=== PATIENT | female | born 1985 | race Caucasian/White ===

== ENCOUNTER 2021-04-30 16:07 | Inpatient (IN) ==
[2021-04-30 17:05] LABS: Urine Appearance Clear; Urine Bilirubin Negative (Negative); Urine Blood Negative (Negative); Urine Color Colorless; Urine Glucose 1+(50 mg/dL) (Negative); Urine Ketones Negative (Negative); Urine Nitrite Negative (Negative); Urine Protein Negative (Negative); Urine Specific Gravity 1.003 (1.002-1.030); Urine Urobilinogen Negative (Negative)
[2021-04-30 19:52] LABS: Urine Benzodiazepine Screen None Detected (None Detect); Urine Cannabinoids Screen None Detected (None Detect); Urine Opiates Screen None Detected (None Detect)
[2021-05-01] MEDS ORDERED: Lactated Ringers 1000 ml BAG 1,000 ML IV ONE (01:26)
[2021-05-01 01:59] LABS: ABS Basophils 0.1 10^3/ul (0-0.2); ABS Eosinophils 0.1 10^3/ul (0-0.6); ABS Monocytes 1.2 10^3/ul (0-0.8); ABS Neutrophils 12.7 10^3/ul (1.5-7.7); Eosinophil % 0.4 %; Hematocrit 38 % (35-47); Hemoglobin 12.8 g/dL (12.0-16.0); Lymphocyte % 12.6 %; Mean Corpuscular HGB Conc 34 g/dL (31-36); Mean Corpuscular Hemoglobin 32 pg (27-31); Mean Corpuscular Volume 95 fL (80-97); Mean Platelet Volume 7.9 fL (7.4-10.4); Platelet Count 247 10^3/uL (150-450); Red Blood Count 3.99 10^6 /uL (3.70-4.87); Red Cell Distribution Width 14 % (10-15); White Blood Count 16.1 10^3/uL (3.5-10.8)
[2021-05-01] MEDS ORDERED: Oxytocin in LR 20 UNITS/1,000 ML BAG IVPB SCH ×2 (02:00→11:00)
[2021-05-01] MEDS ORDERED: Lactated Ringers 1000 ml BAG 1,000 ML IV SCH (02:00)
[2021-05-01] MEDS ORDERED: Ondansetron 4 mg VIAL 2 MG/ML 2 ml VIAL IV ONE (05:00)
[2021-05-01] MEDS ORDERED: Ondansetron 4 mg VIAL 2 MG/ML 2 ml VIAL ONE (05:01)
[2021-05-01] MEDS ORDERED: Witch Hazel PAD JAR TOPICAL PRN (10:19)
[2021-05-01] MEDS ORDERED: Glycerin ADULT 2.4 gm SUPP PR PRN (10:19)
[2021-05-01] MEDS: Dibucaine 1% OINT 28.35 GM TUBE PR PRN (11:57)
[2021-05-02 09:26] LABS: ABS Basophils 0.1 10^3/ul (0-0.2); ABS Eosinophils 0.1 10^3/ul (0-0.6); ABS Lymphocytes 2.5 10^3/ul (1.0-4.8); ABS Monocytes 1.1 10^3/ul (0-0.8); ABS Neutrophils 10.8 10^3/ul (1.5-7.7); Eosinophil % 0.5 %; Hematocrit 33 % (35-47); Hemoglobin 11.1 g/dL (12.0-16.0); Mean Corpuscular HGB Conc 34 g/dL (31-36); Mean Corpuscular Hemoglobin 33 pg (27-31); Mean Corpuscular Volume 96 fL (80-97); Mean Platelet Volume 7.8 fL (7.4-10.4); Platelet Count 218 10^3/uL (150-450); Red Blood Count 3.43 10^6 /uL (3.70-4.87); Red Cell Distribution Width 14 % (10-15); White Blood Count 14.5 10^3/uL (3.5-10.8)
[2021-05-03 08:14] VITALS: BP 112/68
[2021-05-03] MEDS: Dibucaine 1% OINT 28.35 GM TUBE PR PRN (08:25)
== END 2021-05-03 12:00 | disposition home or self-care (01) | DRG 560 ==
LOC: MCHOBOUT 16:07 → MCHOB 17:50
PROVIDERS: ADMIT Midwife; ATTEND Midwife

== ENCOUNTER 2023-11-29 14:43 | Inpatient (IN) ==
[2023-11-29] MEDS ORDERED: Lactated Ringers 1000 ml BAG 1,000 ML IV ONE (16:28)
[2023-11-29] MEDS ORDERED: Penicillin G Potassium IV 5,000,000 UNITS in NS 0.9% 100 ml BAG 100 ML IVPB ONE (16:28)
[2023-11-29] MEDS ORDERED: Buffered Lidocaine 1% SYRIN 1 ml INTRADERM ONE (16:28)
[2023-11-29] MEDS ORDERED: Lidocaine 1% VIAL 10 MG/ML 30 ML VIAL INJ PRN (16:28)
[2023-11-29] MEDS ORDERED: Lactated Ringers 1000 ml BAG 1,000 ML IV SCH ×2 (17:00→19:00)
[2023-11-29 17:29] LABS: ABS Basophils 0.1 10^3/uL (0.0-0.1); ABS Eosinophils 0.1 10^3/uL (0.0-0.5); ABS Lymphocytes 3.4 10^3/uL (1.0-4.8); ABS Monocytes 1.3 10^3/uL (0.0-0.9); ABS Neutrophils 14.3 10^3/uL (1.5-7.6); ABS Nucleated RBC 0.03 10^3/ul; Eosinophil % 0.5 %; Hematocrit 41.9 % (35-45); Hemoglobin 14.2 g/dL (11.5-14.3); Lymphocyte % 17.5 %; Mean Corpuscular Hemoglobin 32.9 pg (27-33); Mean Corpuscular Hgb Conc 33.8 g/dL (31-36); Mean Corpuscular Volume 97.4 fL (80-97); Mean Platelet Volume 8.5 fL (7.5-11.2); Nucleated Red Blood Cells % 0.1 %/100WBC (0.0-0.8); Platelet Count 268 10^3/uL (150-450); Red Blood Count 4.31 10^6/uL (3.63-4.92); Red Cell Distribution Width 13.5 % (12-17); White Blood Count 19.2 10^3/uL (3.8-11.8)
[2023-11-29 17:46] LABS: Urine Benzodiazepine Screen None Detected (None Detect); Urine Opiates Screen None Detected (None Detect)
[2023-11-29] MEDS ORDERED: Oxytocin in LR 20,000 MILLI.UNIT/1,000 ML BAG IV ONE (17:46)
[2023-11-29] MEDS ORDERED: Oxytocin 10 UNITS/ML 1 ML VIAL IM PRN (18:32)
[2023-11-29] MEDS ORDERED: Dibucaine 1% OINT 28.35 GM TUBE PR PRN (18:32)
[2023-11-29] MEDS ORDERED: Witch Hazel PAD JAR TOPICAL PRN (18:32)
[2023-11-29] MEDS ORDERED: Penicillin G Potassium IV 3,000,000 UNITS in NS 0.9% 100 ml BAG 100 ML IVPB SCH (21:30)
[2023-11-30 06:57] LABS: Hematocrit 39.9 % (35-45); Hemoglobin 13.4 g/dL (11.5-14.3); Mean Corpuscular Hemoglobin 32.5 pg (27-33); Mean Corpuscular Hgb Conc 33.7 g/dL (31-36); Mean Corpuscular Volume 96.4 fL (80-97); Platelet Count 242 10^3/uL (150-450); Red Blood Count 4.13 10^6/uL (3.63-4.92); Red Cell Distribution Width 13.4 % (12-17); White Blood Count 18.7 10^3/uL (3.8-11.8)
[2023-11-30 06:59] LABS: ABS Basophils 0.1 10^3/uL (0.0-0.1); ABS Eosinophils 0.1 10^3/uL (0.0-0.5); ABS Lymphocytes 2.8 10^3/uL (1.0-4.8); ABS Monocytes 1.7 10^3/uL (0.0-0.9); ABS Nucleated RBC 0.01 10^3/ul; Eosinophil % 0.8 %; Lymphocyte % 14.8 %
[2023-11-30] MEDS ORDERED: Lidocaine 1% MPF 5 ML VIAL ONE (07:41)
[2023-12-01 07:38] VITALS: BP 109/66
== END 2023-12-01 16:02 | disposition home or self-care (01) | DRG 807 ==
LOC: MCHOBOUT 14:43 → MCHOB 16:29
PROVIDERS: ADMIT Registered Nurse; ATTEND Registered Nurse